=== PATIENT | female | born 1965 | race Caucasian/White ===

== ENCOUNTER 2019-12-15 00:30 | Emergency (ER) | payer MEDICAID ==
[~2019-12-15] VITALS: Ht 160 cm; Wt 74.8 kg
[2019-12-15 00:44] VITALS: BP 112/72
--- NOTE | 2019-12-15 01:15 | NUR ---
PT TRANSFERED TO BED 12 VIA [facility].
--- NOTE | 2019-12-15 01:20 | NUR ---
SEEN AND CLEARED BY . NO NURSING CARE RENDERED.
[2019-12-15 01:25] VITALS: BP 112/72
--- NOTE | 2019-12-15 01:25 | NUR ---
Patient discharged with v/s stable. Written and verbal after care instructions given and explained. Patient alert, oriented and verbalized understanding of instructions. Ambulatory with steady gait. All questions addressed prior to discharge. ID band removed. Patient advised to follow up with PMD. Rx of KEFLEX, SOMA, ELAVIL, MUPIROCIN given. Patient educated on indication of medication including possible reaction and side effects. Opportunity to ask questions provided and answered. HOMELESS FOOD PACKET PROVIDED. BUS PASS PROVIDED.
== END 2019-12-15 01:25 | disposition home or self-care (01) ==
LOC: MED 00:30
DX: G89.29 Other chronic pain (principal); M54.9 Dorsalgia, unspecified; L03.011 Cellulitis of right finger; Z89.512 Acquired absence of left leg below knee; Z88.8 Allergy status to other drugs, medicaments and biological substances; Z88.6 Allergy status to analgesic agent; Z98.890 Other specified postprocedural states
CPT/HCPCS: 99283